=== PATIENT | male | born 1955 | race Caucasian/White ===

== ENCOUNTER 2018-08-26 18:54 | Inpatient (IN) | payer MEDICARE ==
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
[2018-08-26] MEDS ORDERED: Ketorolac INJ* 30 MG/ML 1 ML VIAL IV PUSH ONE (19:47)
[2018-08-26] MEDS ORDERED: Vancomycin(*) 1,000 MG in NS 0.9% 250 ML* 250 ML IVPB ONE (19:48)
[2018-08-26] MEDS ORDERED: Piperacillin/Tazobac ADVAN(*) 3.375 GM in NS 0.9% 100 ML* 100 ML IVPB ONE (19:52)
[2018-08-26 20:03] LABS: ABS Eosinophils 0.1 10^3/ul (0-0.6); ABS Lymphocytes 0.9 10^3/ul (1.0-4.8); ABS Monocytes 0.7 10^3/ul (0-0.8); ABS Neutrophils 12.8 10^3/ul (1.5-7.7); Eosinophil % 0.5 %; Hematocrit 39 % (42-52); Hemoglobin 12.8 g/dL (14.0-18.0); Mean Corpuscular HGB Conc 33 g/dL (31-36); Mean Corpuscular Hemoglobin 27 pg (27-31); Mean Corpuscular Volume 83 fL (80-94); Mean Platelet Volume 6.7 fL (7.4-10.4); Platelet Count 256 10^3/uL (150-450); Red Blood Count 4.67 10^6 /uL (4.18-5.48); Red Cell Distribution Width 14 % (10-15); White Blood Count 14.5 10^3/uL (3.5-10.8)
[2018-08-26 20:14] LABS: Activated Partial Thrombo Time 33.9 seconds (26.0-38.0); INR 0.92 (0.82-1.09)
[2018-08-26 20:21] LABS: Albumin 4.2 g/dL (3.2-5.2); Albumin/Globulin Ratio 1.4 (1-3); BUN/Creatinine Ratio 27.2 (8-20); C Reactive Protein 3.66 mg/L (<8.01); EGFR African American 100.9 (>60); EGFR Non-African American 83.4 (>60); Globulin 3.1 g/dL (2-4); Potassium 4.2 mmol/L (3.5-5.0); Total Bilirubin 0.3 mg/dL (0.2-1.0); Total Protein 7.3 g/dL (6.4-8.9)
[2018-08-26] MEDS ORDERED: Lidocaine 1% INJ* 10 MG/ML 30 ML SDV ONE (21:33)
[2018-08-26] MEDS ORDERED: Morphine 4 MG/ML VIAL (1 ml) 4 MG/ML VIAL IV ONE (22:50)
[2018-08-26] MEDS ORDERED: Metoclopramide IV* 5 MG/ML 2 ML VIAL IV SLOW PU ONE (22:51)
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
[2018-08-26] MEDS ORDERED: fentaNYL* 50 MCG/ML 2 ML VIAL (100 MCG VIAL) IV SLOW PU ONE (23:16)
[2018-08-27] MEDS ORDERED: Ondansetron INJ* 2 MG/ML VIAL IV PRN (00:37)
[2018-08-27] MEDS ORDERED: Nicotine Lozenge* mini 4 MG LOZNG.MINI MT PRN (00:51)
[2018-08-27] MEDS ORDERED: Vancomycin per Pharmacy* NOTE FOLLOW UP SCH (01:00)
[2018-08-27] MEDS: Acetaminophen TAB* 325 MG PO PRN ×4 (01:36→20:41)
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
[2018-08-27 05:43] LABS: Urine Appearance Cloudy; Urine Bilirubin Negative (Negative); Urine Blood Negative (Negative); Urine Color Yellow; Urine Glucose Negative (Negative); Urine Ketones Negative (Negative); Urine Nitrite Negative (Negative); Urine Protein Negative (Negative); Urine Specific Gravity 1.025 (1.010-1.030); Urine Urobilinogen Negative (Negative)
[2018-08-27] MEDS ORDERED: Heparin VIAL(*) 5000 UNITS/ML VIAL (FIVE THOUSAND) SUBCUT SCH (06:00)
[2018-08-27] MEDS: Ketorolac INJ* 30 MG/ML 1 ML VIAL IV PUSH PRN ×3 (06:12→19:13)
[2018-08-27] MEDS: Vancomycin(*) 1,000 MG in NS 0.9% 250 ML* 250 ML IVPB SCH ×3 (06:14→22:00)
[2018-08-27 06:32] LABS: C Reactive Protein 11.53 mg/L (<8.01)
[2018-08-27 06:51] LABS: EGFR African American 77.2 (>60); EGFR Non-African American 63.8 (>60)
[2018-08-27] MEDS ORDERED: cefTRIAXone(*) 1 GM in NS 0.9% 50 ML* 50 ML IVPB ONE (09:00)
[2018-08-27] MEDS: Nicotine PATCH 14 MG/24 HR* PATCH TRANSDERM SCH (09:48)
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
--- NOTE | 2018-08-27 15:01 | PN ---
Progress Note - Progress Note Date of Service: 08/27/18 SOAP: Subjective: []Pt seen at bedside today. He understands that he has a right hip fracture that would be best treated with surgical fixation, but he is unwilling to undergo surgery to fix his hip. He states he would rather be on crutches or in a wheelchair for the rest of his life than undergo hip surgery. He is also resistant to surgery on his left hand. He refuses amputation of any digit but is agreeable to I&D of infected/ necrotic tissue. Denies fever, chills, CP, SOB , dizziness, nausea. Objective: []General: NAD, nontoxic appearing LUE: left 4th and 5th digits are erythematous and very edematous. There is maceration at the bases of the digits where rings has been, the 4th digit with deep foul smelling wounds, though no purulence. reports sensation intact to light touch throughout both digits without pain to palpation. No pain, swelling or erythema of the palm. Capillary refill is less than two seconds distally. RLE: Skin envelope intact, no obvious carmelita deformity, laying on his left side unwilling to move out of this position. Nontender to palpation over the hip. Able to flex and extend at the ankle. Sensation intact to light touch distally, DP2+ Assessment: []right hip IT fracture left hand cellulitis possible osteomyelitis of 4th and 5th digits Plan: []bedrest for right hip fracture left hand warm soapy soaks TID, re-dress with xeroform over open wounds, gauze wrap and tape. Per psych eval patient does not have capacity, medicine service assisting in determining healthcare proxy Tentatively reschedule OR for tomorrow, NPO at midnight. Can have sq heparin until midnight as well. SCDs Vital Signs Temp 98.4 F 08/27/18 12:00 Pulse 61 08/27/18 12:00 Resp 16 08/27/18 12:00 BP 90/45 08/27/18 12:00 Pulse Ox 98 08/27/18 12:00 Intake & Output 08/26/18 08/27/18 08/27/18 18:59 06:59 18:59 Intake Total 350 120 Balance 350 120 Weight 174 lb 167 lb 11.2 oz Intake: IV Fluids 350 Oral 0 120 Other: # Voids 1 Laboratory Last Values WBC 14.5 10^3/uL (3.5-10.8) H 08/26/18 19:56 RBC 4.67 10^6 /uL (4.18-5.48) 08/26/18 19:56 Hgb 12.8 g/dL (14.0-18.0) L 08/26/18 19:56 Hct 39 % (42-52) L 08/26/18 19:56 MCV 83 fL (80-94) 08/26/18 19:56 MCH 27 pg (27-31) 08/26/18 19:56 MCHC 33 g/dL (31-36) 08/26/18 19:56 RDW 14 % (10-15) 08/26/18 19:56 Plt Count 256 10^3/uL (150-450) 08/26/18 19:56 MPV 6.7 fL (7.4-10.4) L 08/26/18 19:56 Neut % (Auto) 88.3 % 08/26/18 19:56 Lymph % (Auto) 6.0 % 08/26/18 19:56 [place] % (Auto) 4.9 % 08/26/18 19:56 Eos % (Auto) 0.5 % 08/26/18 19:56 Baso % (Auto) 0.3 % 08/26/18 19:56 Absolute Neuts (auto) 12.8 10^3/ul (1.5-7.7) H 08/26/18 19:56 Absolute Lymphs (auto) 0.9 10^3/ul (1.0-4.8) L 08/26/18 19:56 Absolute Monos (auto) 0.7 10^3/ul (0-0.8) 08/26/18 19:56 Absolute Eos (auto) 0.1 10^3/ul (0-0.6) 08/26/18 19:56 Absolute Basos (auto) 0.0 10^3/ul (0-0.2) 08/26/18 19:56 Absolute Nucleated RBC 0.0 10^3/ul 08/26/18 19:56 Nucleated RBC % 0.0 08/26/18 19:56 ESR 17 mm/Hr (0-19) 08/27/18 05:40 INR (Anticoag Therapy) 0.92 (0.82-1.09) 08/26/18 19:56 APTT 33.9 seconds (26.0-38.0) 08/26/18 19:56 Sodium 138 mmol/L (135-145) 08/26/18 19:56 Potassium 4.2 mmol/L (3.5-5.0) 08/26/18 19:56 Chloride 106 mmol/L (101-111) 08/26/18 19:56 Carbon Dioxide 26 mmol/L (22-32) 08/26/18 19:56 Anion Gap 6 mmol/L (2-11) 08/26/18 19:56 BUN 29 mg/dL (6-24) H 08/27/18 05:40 Creatinine 1.16 mg/dL (0.67-1.17) 08/27/18 05:40 Est GFR ( Amer) 77.2 (>60) 08/27/18 05:40 Est GFR (Non-Af Amer) 63.8 (>60) 08/27/18 05:40 BUN/Creatinine Ratio 27.2 (8-20) H 08/26/18 19:56 Glucose 124 mg/dL (70-100) H 08/26/18 19:56 Hemoglobin A1c 5.8 % (4.0-5.6) H 08/27/18 05:40 Lactic Acid 0.9 mmol/L (0.5-2.0) 08/26/18 19:56 Calcium 9.0 mg/dL (8.6-10.3) 08/26/18 19:56 Total Bilirubin 0.30 mg/dL (0.2-1.0) 08/26/18 19:56 AST 17 U/L (13-39) 08/26/18 19:56 ALT 12 U/L (7-52) 08/26/18 19:56 Alkaline Phosphatase 90 U/L (34-104) 08/26/18 19:56 Total Creatine Kinase 208 U/L (10-223) 08/26/18 19:56 C-Reactive Protein 11.53 mg/L (<8.01) H 08/27/18 05:40 Total Protein 7.3 g/dL (6.4-8.9) 08/26/18 19:56 Albumin 4.2 g/dL (3.2-5.2) 08/26/18 19:56 Globulin 3.1 g/dL (2-4) 08/26/18 19:56 Albumin/Globulin Ratio 1.4 (1-3) 08/26/18 19:56 Lipase 23 U/L (11.0-82.0) 08/26/18 19:56 Urine Color Yellow 08/27/18 05:30 Urine Appearance Cloudy 08/27/18 05:30 Urine pH 5.0 (5-9) 08/27/18 05:30 Ur Specific [place] 1.025 (1.010-1.030) 08/27/18 05:30 Urine Protein Negative (Negative) 08/27/18 05:30 Urine Ketones Negative (Negative) 08/27/18 05:30 Urine Blood Negative (Negative) 08/27/18 05:30 Urine Nitrate Negative (Negative) 08/27/18 05:30 Urine Bilirubin Negative (Negative) 08/27/18 05:30 Urine Urobilinogen Negative (Negative) 08/27/18 05:30 Ur Leukocyte Esterase Negative (Negative) 08/27/18 05:30 Urine Glucose Negative (Negative) 08/27/18 05:30
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
[2018-08-27] MEDS: Heparin VIAL(*) 5000 UNITS/ML VIAL (FIVE THOUSAND) SUBCUT SCH ×2 (16:22→22:03)
[2018-08-27 17:00] LABS: ABS Eosinophils 0.2 10^3/ul (0-0.6); ABS Monocytes 0.6 10^3/ul (0-0.8); ABS Neutrophils 5.5 10^3/ul (1.5-7.7); Eosinophil % 2.1 %; Hematocrit 34 % (42-52); Hemoglobin 11.2 g/dL (14.0-18.0); Lymphocyte % 13.9 %; Mean Corpuscular HGB Conc 33 g/dL (31-36); Mean Corpuscular Hemoglobin 28 pg (27-31); Mean Corpuscular Volume 84 fL (80-94); Mean Platelet Volume 6.8 fL (7.4-10.4); Platelet Count 181 10^3/uL (150-450); Red Blood Count 4.07 10^6 /uL (4.18-5.48); Red Cell Distribution Width 14 % (10-15); White Blood Count 7.3 10^3/uL (3.5-10.8)
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
[2018-08-27 17:10] LABS: Activated Partial Thrombo Time 34.5 seconds (26.0-38.0)
[2018-08-27 17:11] LABS: EGFR Non-African American 79.4 (>60)
[2018-08-27] MEDS: metroNIDAZOLE IV 500 MG/100ML* 500 MG/100 ML BAG IVPB SCH (17:39)
[2018-08-27] MEDS: Nicotine Patch Removal NOTE FOLLOW UP SCH (22:05)
[2018-08-28] MEDS: Ketorolac INJ* 30 MG/ML 1 ML VIAL IV PUSH PRN ×3 (01:33→22:13)
[2018-08-28] MEDS: metroNIDAZOLE IV 500 MG/100ML* 500 MG/100 ML BAG IVPB SCH ×2 (05:33→17:36)
[2018-08-28] MEDS ORDERED: Vancomycin Trough Check NOTE FOLLOW UP ONE (06:00)
[2018-08-28 06:26] LABS: ABS Eosinophils 0.2 10^3/ul (0-0.6); ABS Monocytes 0.5 10^3/ul (0-0.8); ABS Neutrophils 4.7 10^3/ul (1.5-7.7); Eosinophil % 3.5 %; Hematocrit 34 % (42-52); Hemoglobin 11.1 g/dL (14.0-18.0); Lymphocyte % 15.1 %; Mean Corpuscular HGB Conc 33 g/dL (31-36); Mean Corpuscular Hemoglobin 27 pg (27-31); Mean Corpuscular Volume 83 fL (80-94); Mean Platelet Volume 6.8 fL (7.4-10.4); Platelet Count 171 10^3/uL (150-450); Red Blood Count 4.09 10^6 /uL (4.18-5.48); Red Cell Distribution Width 14 % (10-15); White Blood Count 6.4 10^3/uL (3.5-10.8)
[2018-08-28] MEDS: Vancomycin(*) 1,000 MG in NS 0.9% 250 ML* 250 ML IVPB SCH ×3 (06:28→22:14)
[2018-08-28 06:42] LABS: EGFR Non-African American 90.1 (>60); HDL Cholesterol 42.3 mg/dL
[2018-08-28 07:18] LABS: TSH (Thyroid Stimulating Horm) 0.83 mcIU/mL (0.34-5.60)
[2018-08-28] MEDS: Nicotine PATCH 14 MG/24 HR* PATCH TRANSDERM SCH (08:06)
[2018-08-28] MEDS: Acetaminophen TAB* 325 MG PO PRN ×3 (09:32→23:39)
--- NOTE | 2018-08-28 16:06 | PN ---
Progress Note - Progress Note Date of Service: 08/28/18 SOAP: Subjective: resting in bed, reports he does not want surgery, no pain Objective: Vital Signs Temp Pulse Resp BP Pulse Ox 98.5 F 66 16 102/59 98 08/28/18 15:19 08/28/18 15:19 08/28/18 15:19 08/28/18 15:19 08/28/18 15:19 Laboratory Last Values WBC 6.4 10^3/uL (3.5-10.8) 08/28/18 06:09 RBC 4.09 10^6 /uL (4.18-5.48) L 08/28/18 06:09 Hgb 11.1 g/dL (14.0-18.0) L 08/28/18 06:09 Hct 34 % (42-52) L 08/28/18 06:09 MCV 83 fL (80-94) 08/28/18 06:09 MCH 27 pg (27-31) 08/28/18 06:09 MCHC 33 g/dL (31-36) 08/28/18 06:09 RDW 14 % (10-15) 08/28/18 06:09 Plt Count 171 10^3/uL (150-450) 08/28/18 06:09 MPV 6.8 fL (7.4-10.4) L 08/28/18 06:09 Neut % (Auto) 73.5 % 08/28/18 06:09 Lymph % (Auto) 15.1 % 08/28/18 06:09 [place] % (Auto) 7.2 % 08/28/18 06:09 Eos % (Auto) 3.5 % 08/28/18 06:09 Baso % (Auto) 0.7 % 08/28/18 06:09 Absolute Neuts (auto) 4.7 10^3/ul (1.5-7.7) 08/28/18 06:09 Absolute Lymphs (auto) 1.0 10^3/ul (1.0-4.8) 08/28/18 06:09 Absolute Monos (auto) 0.5 10^3/ul (0-0.8) 08/28/18 06:09 Absolute Eos (auto) 0.2 10^3/ul (0-0.6) 08/28/18 06:09 Absolute Basos (auto) 0.0 10^3/ul (0-0.2) 08/28/18 06:09 Absolute Nucleated RBC 0.0 10^3/ul 08/28/18 06:09 Nucleated RBC % 0.0 08/28/18 06:09 ESR 17 mm/Hr (0-19) 08/27/18 05:40 INR (Anticoag Therapy) 1.00 (0.82-1.09) 08/27/18 16:49 APTT 34.5 seconds (26.0-38.0) 08/27/18 16:49 Sodium 138 mmol/L (135-145) 08/26/18 19:56 Potassium 4.2 mmol/L (3.5-5.0) 08/26/18 19:56 Chloride 106 mmol/L (101-111) 08/26/18 19:56 Carbon Dioxide 26 mmol/L (22-32) 08/26/18 19:56 Anion Gap 6 mmol/L (2-11) 08/26/18 19:56 BUN 25 mg/dL (6-24) H 08/28/18 06:09 Creatinine 0.86 mg/dL (0.67-1.17) 08/28/18 06:09 Est GFR ( Amer) 109.0 (>60) 08/28/18 06:09 Est GFR (Non-Af Amer) 90.1 (>60) 08/28/18 06:09 BUN/Creatinine Ratio 27.2 (8-20) H 08/26/18 19:56 Glucose 124 mg/dL (70-100) H 08/26/18 19:56 Hemoglobin A1c 5.8 % (4.0-5.6) H 08/27/18 05:40 Lactic Acid 0.9 mmol/L (0.5-2.0) 08/26/18 19:56 Calcium 9.0 mg/dL (8.6-10.3) 08/26/18 19:56 Iron 24 ug/dL (50-212) L 08/28/18 06:09 Ferritin 68.0 ng/mL (24-336) 08/28/18 06:09 Total Bilirubin 0.30 mg/dL (0.2-1.0) 08/26/18 19:56 AST 17 U/L (13-39) 08/26/18 19:56 ALT 12 U/L (7-52) 08/26/18 19:56 Alkaline Phosphatase 90 U/L (34-104) 08/26/18 19:56 Total Creatine Kinase 208 U/L (10-223) 08/26/18 19:56 C-Reactive Protein 11.53 mg/L (<8.01) H 08/27/18 05:40 Total Protein 7.3 g/dL (6.4-8.9) 08/26/18 19:56 Albumin 4.2 g/dL (3.2-5.2) 08/26/18 19:56 Globulin 3.1 g/dL (2-4) 08/26/18 19:56 Albumin/Globulin Ratio 1.4 (1-3) 08/26/18 19:56 Triglycerides 97 mg/dL 08/28/18 06:09 Cholesterol 151 mg/dL 08/28/18 06:09 LDL Cholesterol 89 mg/dL 08/28/18 06:09 HDL Cholesterol 42.3 mg/dL 08/28/18 06:09 Lipase 23 U/L (11.0-82.0) 08/26/18 19:56 Vitamin B12 145 pg/mL (180-914) L 08/28/18 06:09 TSH 0.83 mcIU/mL (0.34-5.60) 08/28/18 06:09 Urine Color Yellow 08/27/18 05:30 Urine Appearance Cloudy 08/27/18 05:30 Urine pH 5.0 (5-9) 08/27/18 05:30 Ur Specific [place] 1.025 (1.010-1.030) 08/27/18 05:30 Urine Protein Negative (Negative) 08/27/18 05:30 Urine Ketones Negative (Negative) 08/27/18 05:30 Urine Blood Negative (Negative) 08/27/18 05:30 Urine Nitrate Negative (Negative) 08/27/18 05:30 Urine Bilirubin Negative (Negative) 08/27/18 05:30 Urine Urobilinogen Negative (Negative) 08/27/18 05:30 Ur Leukocyte Esterase Negative (Negative) 08/27/18 05:30 Urine Glucose Negative (Negative) 08/27/18 05:30 Vancomycin Trough 16.0 mcg/mL 08/28/18 06:09 PE: NVI Assessment: multiple finger infections Plan: 1) OR tomorrow with Dr. Valentine 2) Hospitalist co-managing 3) NPO after mid-night 4) continue ABX
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
[2018-08-28] MEDS: Nicotine Patch Removal NOTE FOLLOW UP SCH (22:14)
[2018-08-29] MEDS: Acetaminophen TAB* 325 MG PO PRN ×3 (05:34→23:02)
[2018-08-29] MEDS: metroNIDAZOLE IV 500 MG/100ML* 500 MG/100 ML BAG IVPB SCH ×2 (05:35→17:40)
[2018-08-29 07:02] LABS: ABS Eosinophils 0.2 10^3/ul (0-0.6); ABS Monocytes 0.5 10^3/ul (0-0.8); ABS Neutrophils 4.8 10^3/ul (1.5-7.7); Eosinophil % 3.4 %; Hematocrit 34 % (42-52); Hemoglobin 11.1 g/dL (14.0-18.0); Mean Corpuscular HGB Conc 33 g/dL (31-36); Mean Corpuscular Hemoglobin 28 pg (27-31); Mean Corpuscular Volume 83 fL (80-94); Mean Platelet Volume 7.1 fL (7.4-10.4); Platelet Count 161 10^3/uL (150-450); Red Blood Count 4.05 10^6 /uL (4.18-5.48); Red Cell Distribution Width 14 % (10-15); White Blood Count 6.5 10^3/uL (3.5-10.8)
[2018-08-29] MEDS: Vancomycin(*) 1,000 MG in NS 0.9% 250 ML* 250 ML IVPB SCH ×3 (07:14→22:25)
[2018-08-29 07:23] LABS: Anion Gap 5 mmol/L (2-11); Blood Urea Nitrogen 18 mg/dL (6-24); CO2 Carbon Dioxide 25 mmol/L (22-32); Chloride 106 mmol/L (101-111); Glucose 98 mg/dL (70-100); Potassium 4.3 mmol/L (3.5-5.0); Sodium 136 mmol/L (135-145)
[2018-08-29 07:24] LABS: BUN/Creatinine Ratio 23.1 (8-20); Calcium 8.5 mg/dL (8.6-10.3); EGFR Non-African American 100.9 (>60)
[2018-08-29] MEDS: Nicotine PATCH 14 MG/24 HR* PATCH TRANSDERM SCH (09:21)
[2018-08-29] MEDS: Ketorolac INJ* 30 MG/ML 1 ML VIAL IV PUSH PRN ×2 (09:22→20:19)
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
[2018-08-29] MEDS ORDERED: Enoxaparin(*) 40 MG/0.4 ML SYR SUBCUT SCH (18:30)
[2018-08-29 18:40] LABS: % Iron Saturation 20 % (15-55); Iron 50 ug/dL (50-212); Total Iron Binding Capacity 246 mcg/dL (250-450); Transferrin 176 mg/dL (203-362)
[2018-08-29] MEDS: Enoxaparin(*) 40 MG/0.4 ML SYR SUBCUT SCH (22:25)
[2018-08-29] MEDS: Nicotine Patch Removal NOTE FOLLOW UP SCH (22:31)
[2018-08-30] MEDS: traMADol TAB* 50 MG PO PRN ×3 (01:17→19:21)
[2018-08-30] MEDS: Ketorolac INJ* 30 MG/ML 1 ML VIAL IV PUSH PRN ×3 (02:34→15:51)
[2018-08-30] MEDS: Melatonin 3 MG TAB PO PRN ×2 (02:35→22:57)
[2018-08-30 04:33] LABS: ABS Lymphocytes 0.9 10^3/ul (1.0-4.8); ABS Monocytes 0.5 10^3/ul (0-0.8); ABS Neutrophils 6.7 10^3/ul (1.5-7.7); Eosinophil % 0.6 %; Hematocrit 33 % (42-52); Hemoglobin 10.9 g/dL (14.0-18.0); Mean Corpuscular HGB Conc 33 g/dL (31-36); Mean Corpuscular Hemoglobin 28 pg (27-31); Mean Corpuscular Volume 83 fL (80-94); Mean Platelet Volume 6.8 fL (7.4-10.4); Platelet Count 170 10^3/uL (150-450); Red Blood Count 3.97 10^6 /uL (4.18-5.48); Red Cell Distribution Width 14 % (10-15); White Blood Count 8.2 10^3/uL (3.5-10.8)
[2018-08-30] MEDS: Acetaminophen TAB* 325 MG PO PRN ×3 (05:06→18:08)
[2018-08-30] MEDS: metroNIDAZOLE IV 500 MG/100ML* 500 MG/100 ML BAG IVPB SCH ×2 (05:56→18:08)
[2018-08-30] MEDS: Nicotine PATCH 14 MG/24 HR* PATCH TRANSDERM SCH (07:56)
[2018-08-30] MEDS: Cyanocobalamin TAB* 500 MCG PO SCH (07:56)
[2018-08-30] MEDS: Vancomycin(*) 1,000 MG in NS 0.9% 250 ML* 250 ML IVPB SCH ×2 (07:58→15:54)
--- NOTE | 2018-08-30 09:40 | PN ---
Progress Note - Progress Note Date of Service: 08/30/18 SOAP: Subjective: Pt with right hand infection, right hip fracture. Has refused surgery for either thus far. Still declines intervention on exam today but does not elaborate on reasons why. States that he is having a fair amount of pain in hip with movement. Pain in hand improving. Continues with warm, soapy soaks 3 times daily. Objective: Vitals: Temp Pulse Resp BP Pulse Ox 98 F 60 18 118/57 96 08/30/18 02:50 08/30/18 02:50 08/30/18 02:50 08/30/18 02:50 08/30/18 02:50 Gen: A&Ox3, NAD at rest laying in bed. Somewhat flat affect on exam and answers are very limited RUE: Dressing C/D/I. Brisk cap refill to finger tips, sensation intact RLE: Leg shortened and internally rotated, ttp at hip and thigh. +f/e at ankle and MTPs, N/V intact Labs: Laboratory Results - last 24 hr 08/29/18 08/30/18 06:12 04:22 WBC 8.2 RBC 3.97 L Hgb 10.9 L Hct 33 L MCV 83 MCH 28 MCHC 33 RDW 14 Plt Count 170 MPV 6.8 L Neut % (Auto) 82.4 Lymph % (Auto) 11.0 [place] % (Auto) 5.6 Eos % (Auto) 0.6 Baso % (Auto) 0.4 Absolute Neuts (auto) 6.7 Absolute Lymphs (auto) 0.9 L Absolute Monos (auto) 0.5 Absolute Eos (auto) 0.0 Absolute Basos (auto) 0.0 Absolute Nucleated RBC 0.0 Nucleated RBC % 0.0 Sodium 136 Potassium 4.3 Chloride 106 Carbon Dioxide 25 Anion Gap 5 BUN 18 Creatinine 0.78 Est GFR ( Amer) 122.0 Est GFR (Non-Af Amer) 100.9 BUN/Creatinine Ratio 23.1 H Glucose 98 Calcium 8.5 L Iron 50 TIBC 246 L % Saturation 20 Unsat Iron Binding < 231 Transferrin 176 L Assessment: Right hand infection, right hip fracture Plan: Continue warm, soapy soaks three times daily with dressing reapplied after Again discussed risks/benefits of surgery for hip fracture and pt declines Continue IV abx per ID Continue NWB RLE
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
[2018-08-30] MEDS: Enoxaparin(*) 40 MG/0.4 ML SYR SUBCUT SCH (21:04)
[2018-08-30] MEDS: Nicotine Patch Removal NOTE FOLLOW UP SCH (21:04)
[2018-08-30] MEDS: oxyCODONE TAB* 5 MG TAB PO PRN (22:56)
[2018-08-31] MEDS: Vancomycin(*) 1,000 MG in NS 0.9% 250 ML* 250 ML IVPB SCH ×3 (00:08→12:12)
[2018-08-31] MEDS: Acetaminophen TAB* 325 MG PO PRN ×3 (00:13→16:56)
[2018-08-31] MEDS: Ketorolac INJ* 30 MG/ML 1 ML VIAL IV PUSH PRN (04:03)
[2018-08-31] MEDS: metroNIDAZOLE IV 500 MG/100ML* 500 MG/100 ML BAG IVPB SCH ×2 (06:27→18:05)
[2018-08-31] MEDS: oxyCODONE TAB* 5 MG TAB PO PRN ×2 (06:28→20:41)
[2018-08-31 06:39] LABS: EGFR African American 138.3 (>60); EGFR Non-African American 114.3 (>60)
[2018-08-31 06:45] LABS: Vancomycin Trough 19.9 mcg/mL
[2018-08-31] MEDS ORDERED: Vancomycin Trough Check NOTE FOLLOW UP ONE (07:15)
[2018-08-31] MEDS: Nicotine PATCH 14 MG/24 HR* PATCH TRANSDERM SCH (09:16)
[2018-08-31] MEDS: Cyanocobalamin TAB* 500 MCG PO SCH (09:16)
--- NOTE | 2018-08-31 09:39 | PN ---
Progress Note - Progress Note Date of Service: 08/31/18 SOAP: Subjective: Pt with right hand infection, right hip fracture. Continues to refuse surgery for either and does not elaborate on reasons why. States that he is having a fair amount of pain in hip with movement. Pain in hand improving. Continues with warm, soapy soaks 3 times daily. Objective: Vitals: Temp Pulse Resp BP Pulse Ox 98 F 59 16 117/64 98 08/31/18 08:23 08/31/18 08:23 08/31/18 08:23 08/31/18 08:23 08/31/18 08:23 Gen: A&Ox3, NAD at rest laying in bed. Somewhat flat affect on exam and answers are very limited RUE: Wound to 4th finger clean with minimal bloody drainage. No purulence. No active f/e at 4th finger. N/V intact RLE: Leg shortened and internally rotated, ttp at hip and thigh. +f/e at ankle and MTPs, N/V intact Labs: Laboratory Results - last 24 hr 08/31/18 05:46 BUN 21 Creatinine 0.70 Est GFR ( Amer) 138.3 Est GFR (Non-Af Amer) 114.3 Vancomycin Trough 19.9 Assessment: Right hand infection, right hip fracture Plan: Continue warm, soapy soaks three times daily with dressing reapplied after Again discussed risks/benefits of surgery for hip fracture and pt declines Continue IV abx per ID Continue NWB RLE
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
[2018-08-31] MEDS: Enoxaparin(*) 40 MG/0.4 ML SYR SUBCUT SCH (20:37)
[2018-08-31] MEDS: Nicotine Patch Removal NOTE FOLLOW UP SCH (20:38)
[2018-09-01] MEDS: Vancomycin(*) 1,000 MG in NS 0.9% 250 ML* 250 ML IVPB SCH ×3 (00:03→23:59)
[2018-09-01] MEDS: Acetaminophen TAB* 325 MG PO PRN ×3 (00:08→15:49)
[2018-09-01] MEDS: oxyCODONE TAB* 5 MG TAB PO PRN ×2 (04:27→22:05)
[2018-09-01] MEDS: metroNIDAZOLE IV 500 MG/100ML* 500 MG/100 ML BAG IVPB SCH ×2 (05:48→19:23)
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
[2018-09-01] MEDS: Cyanocobalamin TAB* 500 MCG PO SCH (10:49)
[2018-09-01] MEDS: Nicotine PATCH 14 MG/24 HR* PATCH TRANSDERM SCH (10:50)
[2018-09-01] MEDS: traMADol TAB* 50 MG PO PRN (11:48)
--- NOTE | 2018-09-01 15:52 | PN ---
Progress Note - Progress Note Date of Service: 09/01/18 SOAP: Subjective: []Pt seen at bedside. Right hip pain is well controlled at rest. Reports ability to feel and move all digits on the right hand. Has been soaking right hand TID. Denies fever or chills. Objective: []Gen: NAD at rest laying in bed. RUE: Wound to 4th finger clean, no purulence. No active f/e at 4th finger. N/V intact distally. RLE: Leg shortened and internally rotated, + tenderness over hip and thigh. +f/ e at ankle and MTPs, DP2+. Calves supple and nontender Assessment: Right hand infection, right hip fracture Plan: Continue warm, soapy soaks three times daily with dressing reapplied after - xeroform over open wounds, gauze wrap Patient continues to deny surgery Continue IV abx per ID -- Discontinue vancomycin. Continue flagyl 500 mg IV BID Continue NWB RLE Vital Signs Temp 98.5 F 09/01/18 12:59 Pulse 70 09/01/18 12:59 Resp 17 09/01/18 15:50 BP 111/58 09/01/18 12:59 Pulse Ox 97 09/01/18 12:59 Intake & Output 08/31/18 09/01/18 09/01/18 18:59 06:59 18:59 Intake Total 1145 420 590 Output Total 1200 1050 600 Balance -55 -630 -10 Intake: IV Fluids 275 60 ABX - FLAGYL 30 ABX - VANCOMYCIN 275 30 IVPB 360 ABX - FLAGYL 100 ABX - VANCOMYCIN 260 Oral 870 0 590 Output: Urine 1200 1050 600 Other: # Bowel Movements 1 Estimated Stool Amount Medium Laboratory Last Values WBC 8.2 10^3/uL (3.5-10.8) 08/30/18 04:22 RBC 3.97 10^6 /uL (4.18-5.48) L 08/30/18 04:22 Hgb 10.9 g/dL (14.0-18.0) L 08/30/18 04:22 Hct 33 % (42-52) L 08/30/18 04:22 MCV 83 fL (80-94) 08/30/18 04:22 MCH 28 pg (27-31) 08/30/18 04:22 MCHC 33 g/dL (31-36) 08/30/18 04:22 RDW 14 % (10-15) 08/30/18 04:22 Plt Count 170 10^3/uL (150-450) 08/30/18 04:22 MPV 6.8 fL (7.4-10.4) L 08/30/18 04:22 Neut % (Auto) 82.4 % 08/30/18 04:22 Lymph % (Auto) 11.0 % 08/30/18 04:22 [place] % (Auto) 5.6 % 08/30/18 04:22 Eos % (Auto) 0.6 % 08/30/18 04:22 Baso % (Auto) 0.4 % 08/30/18 04:22 Absolute Neuts (auto) 6.7 10^3/ul (1.5-7.7) 08/30/18 04:22 Absolute Lymphs (auto) 0.9 10^3/ul (1.0-4.8) L 08/30/18 04:22 Absolute Monos (auto) 0.5 10^3/ul (0-0.8) 08/30/18 04:22 Absolute Eos (auto) 0.0 10^3/ul (0-0.6) 08/30/18 04:22 Absolute Basos (auto) 0.0 10^3/ul (0-0.2) 08/30/18 04:22 Absolute Nucleated RBC 0.0 10^3/ul 08/30/18 04:22 Nucleated RBC % 0.0 08/30/18 04:22 ESR 17 mm/Hr (0-19) 08/27/18 05:40 INR (Anticoag Therapy) 1.00 (0.82-1.09) 08/27/18 16:49 APTT 34.5 seconds (26.0-38.0) 08/27/18 16:49 Sodium 136 mmol/L (135-145) 08/29/18 06:12 Potassium 4.3 mmol/L (3.5-5.0) 08/29/18 06:12 Chloride 106 mmol/L (101-111) 08/29/18 06:12 Carbon Dioxide 25 mmol/L (22-32) 08/29/18 06:12 Anion Gap 5 mmol/L (2-11) 08/29/18 06:12 BUN 21 mg/dL (6-24) 08/31/18 05:46 Creatinine 0.70 mg/dL (0.67-1.17) 08/31/18 05:46 Est GFR ( Amer) 138.3 (>60) 08/31/18 05:46 Est GFR (Non-Af Amer) 114.3 (>60) 08/31/18 05:46 BUN/Creatinine Ratio 23.1 (8-20) H 08/29/18 06:12 Glucose 98 mg/dL (70-100) 08/29/18 06:12 Hemoglobin A1c 5.8 % (4.0-5.6) H 08/27/18 05:40 Lactic Acid 0.9 mmol/L (0.5-2.0) 08/26/18 19:56 Calcium 8.5 mg/dL (8.6-10.3) L 08/29/18 06:12 Iron 50 ug/dL (50-212) 08/29/18 06:12 TIBC 246 mcg/dL (250-450) L 08/29/18 06:12 % Saturation 20 % (15-55) 08/29/18 06:12 Unsat Iron Binding < 231 ug/dL 08/29/18 06:12 Transferrin 176 mg/dL (203-362) L 08/29/18 06:12 Ferritin 68.0 ng/mL (24-336) 08/28/18 06:09 Total Bilirubin 0.30 mg/dL (0.2-1.0) 08/26/18 19:56 AST 17 U/L (13-39) 08/26/18 19:56 ALT 12 U/L (7-52) 08/26/18 19:56 Alkaline Phosphatase 90 U/L (34-104) 08/26/18 19:56 Total Creatine Kinase 208 U/L (10-223) 08/26/18 19:56 C-Reactive Protein 11.53 mg/L (<8.01) H 08/27/18 05:40 Total Protein 7.3 g/dL (6.4-8.9) 08/26/18 19:56 Albumin 4.2 g/dL (3.2-5.2) 08/26/18 19:56 Globulin 3.1 g/dL (2-4) 08/26/18 19:56 Albumin/Globulin Ratio 1.4 (1-3) 08/26/18 19:56 Triglycerides 97 mg/dL 08/28/18 06:09 Cholesterol 151 mg/dL 08/28/18 06:09 LDL Cholesterol 89 mg/dL 08/28/18 06:09 HDL Cholesterol 42.3 mg/dL 08/28/18 06:09 Lipase 23 U/L (11.0-82.0) 08/26/18 19:56 Vitamin B12 145 pg/mL (180-914) L 08/28/18 06:09 TSH 0.83 mcIU/mL (0.34-5.60) 08/28/18 06:09 Urine Color Yellow 08/27/18 05:30 Urine Appearance Cloudy 08/27/18 05:30 Urine pH 5.0 (5-9) 08/27/18 05:30 Ur Specific [place] 1.025 (1.010-1.030) 08/27/18 05:30 Urine Protein Negative (Negative) 08/27/18 05:30 Urine Ketones Negative (Negative) 08/27/18 05:30 Urine Blood Negative (Negative) 08/27/18 05:30 Urine Nitrate Negative (Negative) 08/27/18 05:30 Urine Bilirubin Negative (Negative) 08/27/18 05:30 Urine Urobilinogen Negative (Negative) 08/27/18 05:30 Ur Leukocyte Esterase Negative (Negative) 08/27/18 05:30 Urine Glucose Negative (Negative) 08/27/18 05:30 Vancomycin Trough 19.9 mcg/mL 08/31/18 05:46
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
[2018-09-01] MEDS: Al Hydrox/Mg Hydrox/Simet LIQ* 30 ML UDC PO PRN (17:47)
[2018-09-01] MEDS: Enoxaparin(*) 40 MG/0.4 ML SYR SUBCUT SCH (20:13)
[2018-09-01] MEDS: Nicotine Patch Removal NOTE FOLLOW UP SCH (20:15)
[2018-09-02] MEDS: Al Hydrox/Mg Hydrox/Simet LIQ* 30 ML UDC PO PRN (00:04)
[2018-09-02] MEDS ORDERED: Sucralfate TAB* 1 GM PO ONE (00:43)
[2018-09-02] MEDS: traMADol TAB* 50 MG PO PRN (03:37)
[2018-09-02] MEDS: metroNIDAZOLE IV 500 MG/100ML* 500 MG/100 ML BAG IVPB SCH (05:02)
[2018-09-02] MEDS: oxyCODONE TAB* 5 MG TAB PO PRN ×2 (05:07→11:22)
[2018-09-02 07:52] LABS: EGFR African American 165.2 (>60); EGFR Non-African American 136.5 (>60)
[2018-09-02] MEDS: Cyanocobalamin TAB* 500 MCG PO SCH (08:41)
[2018-09-02] MEDS: Acetaminophen TAB* 325 MG PO PRN (08:41)
[2018-09-02] MEDS: Nicotine PATCH 14 MG/24 HR* PATCH TRANSDERM SCH (08:42)
[2018-09-02] MEDS ORDERED: Vancomycin Trough Check NOTE FOLLOW UP ONE (11:30)
[2018-09-02] MEDS ORDERED: Levofloxacin TAB* 500 MG PO SCH (12:00)
[2018-09-02] MEDS: Vancomycin(*) 1,000 MG in NS 0.9% 250 ML* 250 ML IVPB SCH (12:39)
[2018-09-02 13:01] VITALS: BP 124/52
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
== END 2018-09-02 15:00 | DRG 539 ==
LOC: ED 18:54 → MEDTELE 08-27 00:21
PROVIDERS: ADMIT Internal Medicine; ATTEND Internal Medicine
DX: M86.141 Other acute osteomyelitis, right hand (principal); S72.141A Displaced intertrochanteric fracture of right femur, initial encounter for closed fracture; L03.113 Cellulitis of right upper limb; Y09 Assault by unspecified means; Y92.89 Other specified places as the place of occurrence of the external cause; S61.204A Unspecified open wound of right ring finger without damage to nail, initial encounter; L08.9 Local infection of the skin and subcutaneous tissue, unspecified; D72.829 Elevated white blood cell count, unspecified; F17.210 Nicotine dependence, cigarettes, uncomplicated; W18.30XA Fall on same level, unspecified, initial encounter; Z83.3 Family history of diabetes mellitus; I95.9 Hypotension, unspecified; D64.9 Anemia, unspecified
CPT/HCPCS: 36415; 72192; 80048; 80053; 80061; 80202; 81003; 82550; 82565; 82607; 82728; 83036; 83540; 83550; 83605; 83690; 84443; 84520; 85025; 85610; 85652; 85730; 86140; 87070; 87077; 87186; 87205; 93005; 99285; A9270-GY; G8987-GO-CM; G8988-GO-CI; J0696; J1644; J1650; J1885; J2270; J2543; J2765; J3010; J3370; J3490